=== PATIENT | female | born 1955 | race Caucasian/White ===

== ENCOUNTER → 2020-11-17 13:51 | Outpatient (CLI) | payer BC, SELFPAY ==
--- NOTE | ~2020-11-17 | MM_ITS ---
EXAMINATION: MM screening anitha BI w porsha HISTORY: Screening mammogram, family history of breast cancer in her sister. TECHNIQUE: Craniocaudal and mediolateral oblique 3-D tomosynthesis images were obtained and synthetic 2-D images were generated. CAD analysis was submitted and interpreted. COMPARISON: No prior mammogram is available for comparison at this institution. BREAST PARENCHYMAL COMPOSITION: There are scattered areas of fibroglandular density. FINDINGS: RIGHT BREAST: There is asymmetry in the middle third of the outer breast on the craniocaudal view. LEFT BREAST: There is focal asymmetry in the middle third of the breast. IMPRESSION: 1. Bilateral breast findings which may represent the patient's baseline however no comparison is curr ently available. 2. Comparison with prior mammograms is necessary. BI-RADS Category 0: Incomplete: Needs comparison with prior mammograms. Reviewed, dictated and finalized at location A. IMPRESSION: 1. Bilateral breast findings which may represent the patient's baseline however no comparison is currently available. 2. Comparison with prior mammograms is necessary. BI-RADS Category 0: Incomplete: Needs comparison with prior mammograms.
== END ==
PROVIDERS: PCP Internal Medicine
DX: Z12.31 Encounter for screening mammogram for malignant neoplasm of breast (principal); R92.8 Other abnormal and inconclusive findings on diagnostic imaging of breast
CPT/HCPCS: 77063; 77067

== ENCOUNTER → 2021-01-06 09:25 | Outpatient (CLI) | payer BC, SELFPAY ==
--- NOTE | ~2021-01-06 | MM_ITS ---
EXAMINATION: MM diagnostic anitha RT w porsha HISTORY: Right breast asymmetry on screening mammogram TECHNIQUE: Additional 3-D tomosynthesis images of the right breast were performed and synthetic 2-D i mages were generated. CAD analysis was submitted and interpreted. COMPARISON: 11/17/2020, 10/16/2019, 03/13/2019 BREAST PARENCHYMAL COMPOSITION: There are scattered areas of fibroglandular density. FINDINGS: There is a return to baseline fibroglandular appearance with spot compression of the right breast in the area questioned on screening mammogram. IMPRESSION: 1. No mammographic evidence of malignancy. 2. Recommend routine screening mammography in one year. BI-RADS Category 1: Negative Reviewed, dictated and finalized at location A.
== END ==
PROVIDERS: PCP Internal Medicine
DX: R92.8 Other abnormal and inconclusive findings on diagnostic imaging of breast (principal)
CPT/HCPCS: 77061; 77065; G0279

== ENCOUNTER 2022-02-09 13:41 | Emergency (ER) | payer MEDICARE, SELFPAY ==
[2022-02-09] VITALS (14 sets, daily range): BP systolic 122–150; BP diastolic 69–106; PULSE 61–95; RESP 14–20; TEMP 36.6–36.8; O2SAT 97–100
--- NOTE | ~2022-02-09 | CT_ITS ---
EXAMINATION: CTA chest PE protocol DATE: 02/09/2022 18:57 INDICATION: cp, elevated dimer, hx factor v leiden TECHNIQUE: Computed tomography angiography (CTA) of the chest was performed with 100 mL Omnipaque-350 intravenous contrast timed to evaluate the pulmonary arteries. Coronal maximum intensity projection 3D-reconstructions were created by the technologist. The dose-length product (DLP) was 236.05 mGy-cm. Automated exposure control and iterative reconstruction technique were employed. COMPARISON: X-ray chest, same date. FINDINGS: Lung parenchyma and airways: Minimal biapical pleural scarring. Small focus of scar/atelectasis in th e right middle lobe. Pleura: Uncomplicated fat-containing left posterior lateral diaphragmatic hernia. Thoracic inlet, axillae and chest wall: Unremarkable. Thoracic aorta: Mild arch calcification. Mediastinum: Small hiatal hernia. Heart and pericardium: Normal. Coronary artery calcifications: Absent. Upper abdomen: No significant finding. Bones: No acute osseous finding. Pulmonary arteries: Study quality: Adequate. No pulmonary emboli detected. IMPRESSION: No CT evidence of acute pulmonary embolus. Reviewed, dictated and finalized at location K. NT SERVICES DIRECTOR
--- NOTE | ~2022-02-09 | XR_ITS ---
EXAMINATION: XR chest 2V DATE: 02/09/2022 14:49 INDICATION: Chest pain TECHNIQUE: PA and lateral views of the chest are obtained. COMPARISON: 07/08/2005 FINDINGS: The lungs are free of acute opacities. No pleural effusion or pneumothorax. The cardiomedia stinal silhouette is normal. There is moderate thoracic spondylosis. IMPRESSION: 1. No acute cardiopulmonary abnormality. Reviewed, dictated and finalized at location B. T [employer]OWER
--- NOTE | 2022-02-09 13:49 | ECG_ITS ---
Measurements Intervals [place] Rate: 72 P: 39 IA: 163 QRS: 56 QRSD: 82 T: 34 QT: 353 QTc: 387 Interpretive Statements SINUS RHYTHM NORMAL ECG NO PREVIOUS ECG AVAILABLE FOR COMPARISON Electronically Signed On 02-09-2022 13:54:08 [employer] by Bo Ortega D.O.
[2022-02-09 14:01] LABS: Basophils Absolute Auto 0.1 K/mm3 (0.0-0.1); Basophils Percent Auto 0.8 % (0.2-1.2); Eosinophils Absolute Auto 0.2 K/mm3 (0-0.3); Eosinophils Percent Auto 3.5 % (0-4.4); Hematocrit 40.6 % (37.0-47.0); Hemoglobin 13.1 g/dL (12.0-15.0); Immature Granulocyte Absolute 0.01 K/mm3 (0.00-0.031); Immature Granulocyte Percent A 0.2 % (0-0.5); Lymphocytes Absolute Auto 1.99 K/mm3 (0.9-3.2); Lymphocytes Percent Auto 31.3 % (18.3-44.2); Mean Corpuscular HGB Conc 32.3 g/dl (32-36); Mean Corpuscular Hemoglobin 29.1 pg (26-34); Mean Corpuscular Volume 90.2 fl (80-100); Mean Platelet Volume 9.7 fl (7.4-10.4); Monocytes Absolute Auto 0.5 K/mm3 (0.1-0.6); Neutrophils Absolute Auto 3.6 K/mm3 (1.3-6.7); Neutrophils Percent Auto 56.2 % (45.5-73.1); Platelet Count Result 328 k/mm3 (150-375); Red Cell Distribution Width 13.3 % (11.5-14.5); White Blood Count 6.4 K/mm3 (4.5-10.0)
[2022-02-09 14:14] LABS: Alanine Aminotransferase 23 U/L (6-35); Albumin Level 4.4 g/dL (3.5-5.1); Alkaline Phosphatase 83 U/L (38-126); Anion Gap 10 mmol/L (8-16); Aspartate Amino Transferase 25 U/L (14-36); Bilirubin,Total 0.6 mg/dL (0.2-1.3); Blood Urea Nitrogen 11 mg/dL (7-17); Calcium 8.8 mg/dL (8.4-10.2); Carbon Dioxide 29 mmol/L (22-30); Chloride 102 mmol/L (98-107); Estimated CRCL calculation 65 ml/min; Estimated Glomerular Filt Rate > 60; Glucose 99 mg/dL (65-110); Lipase 92 U/L (23-300); Potassium 4.2 mmol/L (3.4-5.0); Sodium 141 mmol/L (137-145)
[2022-02-09 14:26] LABS: Troponin I < 0.012 ng/mL (0.000-0.034)
[2022-02-09 14:39] LABS: Partial Thromboplastin Time 30.7 SECONDS (22.3-36.8); Prothrombin Time 12.7 Seconds (11.1-14.7)
--- NOTE | 2022-02-09 17:44 | ED.CHESTPAIN ---
HPI - Chest Pain General Chief Complaint: Chest Pain <Rhonda Decker PA-C - Last Filed: 02/09/22 20:10> Stated Complaint: chest pain <Rhonda Decker PA-C - Last Filed: 02/09/22 20:10> Time Seen by Provider: 02/09/22 17:26 <Rhonda Decker PA-C - Last Filed: 02/09/22 20:10> Source: patient <GEGE Gao Last Filed: 02/09/22 20:10> Mode of arrival: ambulatory <GEGE Gao Last Filed: 02/09/22 20:10> Limitations: no limitations <Rhonda Decker PA-C - Last Filed: 02/09/22 20:10> History of Present Illness HPI narrative: This is a 66-year-old female that presents to the ER for chest pain ongoing since last night. Reports she was laying down and attempting to go to sleep. She started to have a dull chest pain. Reports sometimes it was on the right side of her chest and at times it was on the left side of her chest. She was also having some intermittent back pain. Does report that she has had increased stress recently. She does not currently have any pain. Denies fever, cough, shortness of breath, or lower extremity edema. <Rhonda Decker PA-C - Last Filed: 02/09/22 20:10> Related Data Home Medications: Home Medications Medication Instructions Recorded Confirmed acetaminophen 500 mg tablet 500 mg PO Q6H PRN 12/25/19 12/25/19 (Tylenol Extra Strength) alprazolam 0.25 mg tablet 0.25 mg PO DAILY PRN 12/25/19 12/25/19 cholecalciferol (vitamin D3) 25 25 mcg PO DAILY 12/25/19 12/25/19 mcg (1,000 unit) capsule fluticasone furoate 27.5 2 spray intranasal DAILY 12/25/19 12/25/19 mcg/actuation nasal spray,suspension ibuprofen 200 mg capsule (Motrin 200 mg PO Q6H PRN 12/25/19 12/25/19 IB) multivitamin 1 tablet PO DAILY 12/25/19 12/25/19 <Rhonda Decker PA-C - Last Filed: 02/09/22 20:10> Allergies/Adverse Reactions: Allergies Allergy/AdvReac Type Severity Reaction Status Date / Time No Known Allergies Allergy Mild Verified 02/09/22 14:14 <Rhonda Decker PA-C - Last Filed: 02/09/22 20:10> Review of Systems Review of Systems: CONSTITUTIONAL: Denies fever ENT: Denies rhinorrhea, congestion, sore throat, or otalgia. CARDIOVASCULAR: Reports chest pain. Denies edema. RESPIRATORY: Denies current dyspnea. GASTROINTESTINAL: Denies abdominal pain, nausea, vomiting GENITOURINARY: Denies dysuria SKIN: Denies rash MUSCULOSKELETAL: Reports back pain NEUROLOGIC: Denies weakness. PSYCHIATRIC: Reports anxiety <Rhonda Decker PA-C - Last Filed: 02/09/22 20:10> All systems reviewed & are unremarkable except as noted in HPI and below <Rhonda Decker PA-C - Last Filed: 02/09/22 20:10> [facility] Past Medical History Medical History: Medical History (Updated 02/10/22 @ 00:00 by Imelda Bateman) Chronic back pain Chronic GERD Factor V Leiden mutation H/O malignant neoplasm of thyroid Hyperlipidemia Hypothyroidism Panic attacks <Rhonda Decker PA-C - Last Filed: 02/09/22 20:10> Surgical History Surgical History: Surgical History (Updated 02/09/22 @ 17:50 by Rhonda Decker PA-C) History of thyroidectomy <Rhonda Decker PA-C - Last Filed: 02/09/22 20:10> Social History Social History: Social History (Updated 12/25/19 @ 13:07 by Hui Alonzo [facility]) Smoking status: Never smoker Alcohol intake: current <Rhonda Decker PA-C - Last Filed: 02/09/22 20:10> Exam Narrative: GENERAL: Well-appearing, well-nourished, and in no acute distress. HEAD: Normocephalic, atraumatic. EYES: EOMI. CHEST: Clear to auscultation. No respiratory distress. No wheezes rales or rhonchi HEART: Regular rate and rhythm. No murmur heard. Normal peripheral pulses. EXTREMITIES: Normal range of motion. No edema. SKIN: Warm, dry, no rash. NEURO: No focal deficits. Alert and oriented x3. PSYCH: Normal mood and affect <Rhonda Decker PA-C - Last Filed: 02/09/22 20:10> Course [employer]/PA Physician Supervision Fo
--- NOTE | 2022-02-09 18:03 | PC.NURSE ---
ok to not give aspirin per preston swann
[2022-02-09 18:04] LABS: Troponin I < 0.012 ng/mL (0.000-0.034)
[2022-02-09 18:28] LABS: D Dimer 0.62 ug/mL (<0.48)
== END 2022-02-09 20:27 | disposition home or self-care (01) ==
PROVIDERS: Emergency Medicine; Physician Assistant; Emergency Provider Emergency Medicine; PCP Internal Medicine
DX: R07.9 Chest pain, unspecified (principal); K21.9 Gastro-esophageal reflux disease without esophagitis; E89.0 Postprocedural hypothyroidism; E78.5 Hyperlipidemia, unspecified
CPT/HCPCS: 36415; 71046; 71275; 80053; 83690; 84484; 85025; 85380; 85610; 85730; 93005; 99284; Q9967